=== PATIENT | female | born 1995 | race Caucasian/White ===

== ENCOUNTER 2017-07-25 09:36 | Emergency (ER) | payer BC ==
--- NOTE | 2017-07-25 10:36 | EDM.PDOC ---
ED HPI GENERAL MEDICAL PROBLEM - General Chief Complaint: Gastrointestinal Problem Stated Complaint: 10 WEEKS PREG AND CRAMPING Time Seen by Provider: 07/25/17 10:14 Source of Information: Reports: Patient History Limitations: Reports: No Limitations - History of Present Illness INITIAL COMMENTS - FREE TEXT/NARRATIVE: The patient states that she is approximately 10 weeks gestation. Ab1. LMP 05/10/2017. LYNDON 02/18/18. Her cbx operator is Dr. Marin. She has undergone 2 ultrasounds thus far, demonstrating a SLIUP. She states that Wednesday night, 07/23/2017, she developed lower abdominal cramps. At that time, she did not have any nausea, vomiting, constipation, or diarrhea. No vaginal bleeding. On 07/24/2017, she felt fine, however, last night she developed significantly increased lower abdominal pain and cramps, along with nausea, vomiting, and watery diarrhea. Still no vaginal bleeding. No fever. She took Tylenol around 02:00 and again around 07:00, without relief. No prior similar symptoms. No recent spoiled food. No recent antibiotics. No recent travel. No similarly ill contacts. She states that she went to the hospital in [facility] this morning. A copy of her medical record has been faxed to us. It indicates that a CBC, CMP, and urinalysis were checked, all of which were completely normal. She states that she was discharged home with 2 pills of Zofran, however, she decided to come to this ED, because that hospital does not have obstetric care. The patient's PCP is Dr. Tien Thomas, at [facility], [place]. 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: , 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 Psychiatric History: Reports: Anxiety, Depression - Past Surgical History HEENT Surgical History: Reports: Myringotomy w Tube(s) Social & Family History - Family History Family Medical History: Noncontributory - Tobacco Use Smoking Status *Q: Never Smoker Second Hand Smoke Exposure: No - Caffeine Use Caffeine Use: Reports: Tea - Alcohol Use Alcohol Use History: Yes Alcohol Use Frequency: Socially (not when ) - Recreational Drug Use Recreational Drug Use: No - Living Situation & Occupation Living situation: Reports: Single, Alone Occupation: Employed ([employer]) ED ROS GENERAL - Review of Systems Review Of Systems: ROS reveals no pertinent complaints other than HPI. ED EXAM, GI/ABD - Physical Exam Exam: See Below Exam Limited By: No Limitations General Appearance: Alert, WD/WN, No Apparent Distress Eyes: Bilateral: Normal Appearance, EOMI Ears: Normal External Exam, Hearing Grossly Normal Nose: Normal Inspection, No Blood Throat/Mouth: Normal Inspection, Normal Lips, Normal Voice, No Airway Compromise Head: Atraumatic, Normocephalic Neck: Normal Inspection, Full Range of Motion Respiratory/Chest: No Respiratory Distress, Lungs Clear, Normal Breath Sounds, No Accessory Muscle Use Cardiovascular: Normal Peripheral Pulses, Regular Rate, Rhythm, No Gallop, No JVD, No Murmur, No Rub GI/Abdominal Exam: Normal Bowel Sounds, Soft, Non-Tender, No Organomegaly, No Distention, No Abnormal Bruit, No Mass (Female) Exam: Deferred Rectal (Female) Exam: Deferred Back Exam: Normal Inspection, Full Range of Motion. No: CVA Tenderness (L), CVA Tenderness (R) Extremities: Normal Inspection, Normal Range of Motion, No Pedal Edema, Normal Capillary Refill Neurological: Alert, Oriented, Normal Cognition, No Motor/Sensory Deficits Psychiatric: Normal Affect Skin Exam: Warm, Dry, Intact, Normal Color, No Rash Course - Vital Signs Last Recorded V/S: Last Vital Signs Temp 36.9 C 07/25/17 09:45 Pulse 100 07/25/17 09:45 Resp 18 07/25/17 09:45 BP 113/70 07/25/17 09:45 Pulse Ox 100 07/25/17 09:45 - Orders/Labs/Meds Orders: Active Orders 24 hr Category Date Time Status Heart Tones [RC] ASDIRECTED Care 07/25/17 10:30 Active Labs: Laboratory Tests 07/25/17 Range/Units 10:00 Urine Color Yellow (Yellow) Urine Appearance Clear (Clear) Urine pH 6.0 (5.0-8.0) Ur Specific [place] > or = 1.030 (1.005-1.030) Urine Protein Negative (Negative) Urine Glucose (UA) Negative (Negative) Urine Ketones Trace H (Negative) Urine Occult Blood Negative (Negative) Urine Nitrite Negative (Negative) Urine Bilirubin Negative (Negative) Urine Urobilinogen 0.2 (0.2-1.0) Ur Leukocyte Esterase Negative (Negative) Urine RBC 0-5 (0-5) /hpf Urine WBC 0-5 (0-5) /hpf Ur Epithelial Cells 0-5 (0-5) /hpf Urine Bacteria Few (FEW) /hpf Urine Mucus Few (FEW) /hpf - Re-Assessments/Exams Free Text/Narrative Re-Assessment/Exam: 07/25/17 10:25 heart tones are 185. Unfortunately, Imodium (loperamide) is category C. Lomotil category is not available. 07/25/17 12:09 The patient was not able to provide a stool sample. We will send her home with a hat and stool container, along with recommendations for what stool studies would be appropriate, as the patient's PCP is in [place]. She would take the stool sample there. I will e-prescribe Zofran. Departure - Departure Time of Disposition: 12:11 Disposition: Home, Self-Care 01 Condition: Good Clinical Impression: Viral gastroenteritis - Discharge Information Prescriptions: Ondansetron [Zofran ODT] 1 tab PO Q8H PRN #10 tab.dis PRN Reason: Nausea/Vomiting Referrals: Lexi Marin MD [Physician] - Tien Thomas MD [Primary Care Provider] - Forms: ED Department Discharge Additional Instructions: You were seen in the emergency room for lower abdominal cramps associated with nausea, vomiting, and watery diarrhea, while . Workup in the ER included a urinalysis and heart tones. You were not able to provide a stool sample. Your urinalysis was normal. Your heart tones were 185. This is normal for a 10 week fetus. You are MOST LIKELY suffering from viral gastroenteritis. Unfortunately, there are no medicines to directly treat viral gastroenteritis - it will have to run its course. A prescription for the anti-nausea medicine Zofran has been sent to [facility], [address] [place] [address]. Dissolve 1 tablet on your tongue up to every 8 hours as needed for nausea/vomiting. Unfortunate, there are no anti-diarrhea medicines that are safe with . Stay adequately hydrated. Gatorade or Powerade are best. You have been sent home with a hat and stool container. If you are able to provide a stool sample, notify Dr. Thomas's office so that they can submit stool studies, such as stool culture, stool WBC, rotavirus, and norovirus. If any other problems, please do not hesitate to return to the ER. - My Orders Last 24 Hours: My Active Orders 07/25/17 10:30 Heart Tones [RC] ASDIRECTED - Assessment/Plan Last 24 Hours: My Active Orders 07/25/17 10:30 Heart Tones [RC] ASDIRECTED
== END 2017-07-25 12:25 | disposition home or self-care (01) ==
LOC: JD.ED 09:36
DX: O98.811 Other maternal infectious and parasitic diseases complicating pregnancy, first trimester (principal); A08.4 Viral intestinal infection, unspecified; O99.341 Other mental disorders complicating pregnancy, first trimester; F32.9 Major depressive disorder, single episode, unspecified; Z79.899 Other long term (current) drug therapy; Z88.8 Allergy status to other drugs, medicaments and biological substances; Z3A.10 10 weeks gestation of pregnancy
CPT/HCPCS: 81001; 99283; 99284

== ENCOUNTER 2018-01-27 14:53 | Inpatient (IN) | payer BC ==
[2018-01-27] MEDS ORDERED: Misoprostol 25 MCG (1/4 of 100 MCG) Tab ONE ×2 (16:56→21:39)
[2018-01-27] MEDS ORDERED: Sodium Chloride 0.9% 10 ML Syringe FLUSH PRN (17:08)
[2018-01-27] MEDS ORDERED: Misoprostol 100 MCG Tab VAG PRN (17:08)
[2018-01-27] MEDS ORDERED: Nalbuphine 20 MG/ML 1 ML Syringe IVPUSH PRN (17:12)
[2018-01-27] MEDS ORDERED: Ondansetron 4 MG/2 ML SDV IVPUSH PRN (17:12)
--- NOTE | 2018-01-27 17:14 | PCM.LDHP ---
L&D History of Present Illness - General Date of Service: 01/27/18 Admit Problem/Dx: Patient Status Order with Admit Dx/Problem 01/27/18 15:03 Patient Status [ADT] Routine 01/27/18 17:09 Patient Status [ADT] Routine Admission Diagnosis/Problem Admission Diagnosis/Problem Elevated blood pressure affecting in third trimester, antepartum Source of Information: Patient History Limitations: Reports: No Limitations - History of Present Illness Introduction:: Patient is a 23 y/o at 37 3/7 wks who presents to L&D for complaints of feeling slightly unwell and findings of elevated BP at home. States this started occurring a few days ago. Due to this her friend who is an EMT checked her blood pressure and was reportedly systolic of 150's. This otherwise uncomplicated. 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: , Therapeutic : 2 Para: 0 LMP (Approximate): Musculoskeletal History: Reports: Other (See Below) Other Musculoskeletal History: tremors in hands Neurological History: Reports: Migraines Psychiatric History: Reports: Anxiety, Depression Dermatologic History: Reports: Cellulitis - Infectious Disease History Infectious Disease History: Reports: Chicken Pox - Past Surgical History HEENT Surgical History: Reports: Myringotomy w Tube(s), Oral Surgery Social & Family History - Family History Family Medical History: Noncontributory - Tobacco Use Smoking Status *Q: Never Smoker - Caffeine Use Caffeine Use: Reports: Tea - Alcohol Use Alcohol Use History: No - Recreational Drug Use Recreational Drug Use: No - Living Situation & Occupation Living situation: Reports: Single, Alone Occupation: Employed ([employer]) H&P Review of Systems - Review of Systems: Review Of Systems: See Below General: Reports: Malaise Pulmonary: Reports: No Symptoms Cardiovascular: Reports: No Symptoms Gastrointestinal: Reports: No Symptoms Genitourinary: Reports: No Symptoms Musculoskeletal: Reports: No Symptoms Psychiatric: Reports: No Symptoms Neurological: Reports: No Symptoms L&D Exam - Exam Exam: See Below - Vital Signs Vital Signs: Last Vital Signs Temp 36.7 C 01/27/18 15:03 Pulse 99 01/27/18 15:03 Resp 17 01/27/18 15:03 BP 155/90 H 01/27/18 15:03 Pulse Ox Weight: 87.906 kg - OB Specific Contraction Intensity: Irritability Movement: Active Heart Tones: Present Heart Tones per Min: 135 Heart Rate (FHR) Variability: Moderate (6-25 bmp) Presentation: Vertex - Tobias Score Tobias Score Cervix Position: Posterior Tobias Score Consistency: Soft Tobias Score Effacement: 51-70% Tobias Score Dilation: 1-2 cm Tobias Score Infant's Station: -1 ,0 Tobias Score Total: 7 - Exam General: Alert, Oriented, Cooperative Lungs: Clear to Auscultation, Normal Respiratory Effort Cardiovascular: Regular Rate, Regular Rhythm GI/Abdominal Exam: Soft, Non-Tender Genitourinary: Normal external exam Extremities: Normal Inspection Skin: Warm, Dry, Intact - Patient Data Lab Results Last 24 hrs: Laboratory Results - last 24 hr 01/27/18 01/27/18 01/27/18 Range/Units 15:10 15:20 15:20 WBC 10.84 H (3.98-10.04) K/mm3 RBC 4.12 (3.98-5.22) M/mm3 Hgb 10.5 L (11.2-15.7) gm/L Hct 32.3 L (34.1-44.9) % MCV 78.4 L (79.4-94.8) fl MCH 25.5 L (25.6-32.2) pg MCHC 32.5 (32.2-35.5) g/dl RDW Std Deviation 40.7 (36.4-46.3) fL Plt Count 352 (182-369) K/mm3 MPV 10.3 (9.4-12.3) fl Neut % (Auto) 78.3 H (34.0-71.1) % Lymph % (Auto) 14.9 L (19.3-51.7) % [place] % (Auto) 5.4 (4.7-12.5) % Eos % (Auto) 0.6 L (0.7-5.8) Baso % (Auto) 0.1 (0.1-1.2) % Neut # (Auto) 8.48 H (1.56-6.13) K/mm3 Lymph # (Auto) 1.62 (1.18-3.74) K/mm3 [place] # (Auto) 0.59 H (0.24-0.36) K/mm3 Eos # (Auto) 0.06 (0.04-0.36) K/mm3 Baso # (Auto) 0.01 (0.01-0.08) K/mm3 BUN 12 (7-18) mg/dL Creatinine 0.6 (0.55-1.02) mg/dL Est Cr Clr Drug Dosing 130.10 mL/min Estimated GFR (MDRD) > 60 (>60) mL/min Uric Acid 4.8 (2.6-6.0) mg/dL AST 10 L (15-37) U/L ALT 14 (14-59) U/L Lactate Dehydrogenase 163 (81-234) U/L Urine Color Yellow (Yellow) Urine Appearance Slt cloudy H (Clear) Urine pH 5.5 (5.0-8.0) Ur Specific [place] > or = 1.030 (1.005-1.030) Urine Protein 2+ H (Negative) Urine Glucose (UA) Negative (Negative) Urine Ketones Negative (Negative) Urine Occult Blood Negative (Negative) Urine Nitrite Negative (Negative) Urine Bilirubin Negative (Negative) Urine Urobilinogen 0.2 (0.2-1.0) Ur Leukocyte Esterase Negative (Negative) Urine RBC 0-5 (0-5) /hpf Urine WBC 5-10 H (0-5) /hpf Ur Epithelial Cells 20-30 H (0-5) /hpf Urine Bacteria Moderate H (FEW) /hpf Urine Mucus Not seen (FEW) /hpf Result Diagrams: 01/27/18 15:20 01/27/18 15:20 - Problem List (1) 37 weeks gestation of SNOMED Code(s): 11573013 ICD Code: Z3A.37 - 37 WEEKS GESTATION OF Status: Acute Current Visit: Yes (2) Preeclampsia SNOMED Code(s): 676621155 ICD Code: O14.90 - UNSPECIFIED PRE-ECLAMPSIA, UNSPECIFIED TRIMESTER Status : Acute Current Visit: Yes Qualifiers: Trimester: third trimester Qualified Code(s): O14.93 - Unspecified pre- eclampsia, third trimester Problem List Initiated/Reviewed/Updated: Yes Orders Last 24hrs: Active Orders 24 hr Category Date Time Status Patient Status [ADT] Routine ADT 01/27/18 15:03 Active Patient Status [ADT] Routine ADT 01/27/18 17:09 Ordered Communication Order [RC] ASDIRECTED Care 01/27/18 17:09 Ordered Communication Order [RC] ASDIRECTED Care 01/27/18 17:09 Ordered Communication Order [RC] ASDIRECTED Care 01/27/18 17:12 Ordered Monitoring [RC] INTERMITTENT Care 01/27/18 17:09 Ordered Non Stress Test [RC] PER UNIT ROUTINE Care 01/27/18 15:03 Active Non Stress Test [RC] PER UNIT ROUTINE Care 01/27/18 17:09 Ordered Notify Provider [RC] ASDIRECTED Care 01/27/18 17:09 Ordered Notify Provider [RC] PRN Care 01/27/18 17:12 Ordered Peripheral IV Care [RC] . DIRECTED Care 01/27/18 17:10 Ordered Vaginal Exam [RC] ASDIRECTED Care 01/27/18 17:09 Ordered Vital Signs [RC] ASDIRECTED Care 01/27/18 17:09 Ordered Vital Signs [RC] PER UNIT ROUTINE Care 01/27/18 15:03 Active Regular Diet [DIET] Diet 01/27/18 Dinner Ordered RAPID PLASMA REAGIN,RPR [CHEM] Routine Lab 01/27/18 17:12 Ordered TYPE AND SCREEN [BBK] Routine Lab 01/27/18 17:12 Ordered Lactated Ringers [Ringers, Lactated] 1,000 ml Med 01/27/18 17:15 Ordered IV ASDIRECTED Nalbuphine [Nubain] Med 01/27/18 17:12 Ordered 10 mg IVPUSH Q2H PRN Ondansetron [Zofran] Med 01/27/18 17:12 Ordered 4 mg IVPUSH Q4H PRN Oxytocin/Lactated Ringers [Pitocin in LR 10 Units/1,000 Med 01/27/18 17:15 Ordered ML] 10 unit in 1,000 ml IV TITRATE Sodium Chloride 0.9% [Saline Flush] Med 01/27/18 17:08 Ordered 10 ml FLUSH ASDIRECTED PRN miSOPROStol [Cytotec] Med 01/27/18 17:08 Ordered 25 mcg VAG Q4H PRN PIH Panel [OM.PC] Stat Oth 01/27/18 15:03 Ordered Peripheral IV Insertion Adult [OM.PC] Routine Oth 01/27/18 17:09 Ordered Resuscitation Status Routine Resus Stat 01/27/18 15:03 Ordered Medication Orders Lactated Ringer's (Ringers, Lactated) 1,000 mls @ 40 mls/hr IV ASDIRECTED LINDSAY Oxytocin/Lactated Ringer's (Pitocin In Lr 10 Units/1,000 Ml) 10 unit in 1,000 mls @ 12 mls/hr IV TITRATE LINDSAY; Protocol Misoprostol (Cytotec) 25 mcg VAG Q4H PRN PRN Reason: cervical ripening Sodium Chloride (Saline Flush) 10 ml FLUSH ASDIRECTED PRN PRN Reason: Keep Vein Open Assessment/Plan Comment:: 23 y/o at 37 3/7 wks with findings of persistently mild range BP's - concerns for preeclampsia without severe features * Labs drawn, close monitoring of BP's * GBS negative, no need for antibiotics * Cytotec placed for induction. Due to patient discomfort not able to place miller bulb * Pain management per patient preference * Anticipate
[2018-01-27] MEDS ORDERED: Oxytocin/Lactated Ringers 10 UNIT/1,000 ML BAG IV SCH (17:15)
[2018-01-27] MEDS ORDERED: ePHEDrine 50 MG/ML SDV IVPUSH PRN (17:29)
[2018-01-27] MEDS ORDERED: fentaNYL 100 MCG/2 ML SDV EPIDUR PRN (17:29)
[2018-01-27] MEDS ORDERED: Bupivacaine/fentaNYL/NS 100 ML Bag EPIDUR SCH (17:30)
[2018-01-27] MEDS ORDERED: Zolpidem 5 MG Tab PO PRN (21:31)
--- NOTE | 2018-01-27 22:06 | PCM.PNLD ---
Labor Progress Note - VS & Meds Vital Signs: Last Vital Signs Temp 36.7 C 01/27/18 15:03 Pulse 99 01/27/18 15:03 Resp 17 01/27/18 15:03 BP 155/90 H 01/27/18 15:03 Pulse Ox Active Medications: Current Medications Ephedrine Sulfate (Ephedrine Sulfate) 5 mg IVPUSH ASDIRECTED PRN PRN Reason: HYPOTENTSION Fentanyl (Sublimaze) 100 mcg EPIDUR Q3H PRN PRN Reason: Pain Fentanyl/Bupivacaine HCl (Fentanyl/Bupivacaine/Ns 2 Mcg-0.125% 100 Ml) 100 ml EPIDUR ASDIRECTED LINDSAY Lactated Ringer's (Ringers, Lactated) 1,000 mls @ 40 mls/hr IV ASDIRECTED LINDSAY Oxytocin/Lactated Ringer's (Pitocin In Lr 10 Units/1,000 Ml) 10 unit in 1,000 mls @ 12 mls/hr IV TITRATE LINDSAY; Protocol Misoprostol (Cytotec) 25 mcg VAG Q4H PRN PRN Reason: cervical ripening Nalbuphine HCl (Nubain) 10 mg IVPUSH Q2H PRN PRN Reason: pain Ondansetron HCl (Zofran) 4 mg IVPUSH Q4H PRN PRN Reason: Nausea/Vomiting Sodium Chloride (Saline Flush) 10 ml FLUSH ASDIRECTED PRN PRN Reason: Keep Vein Open Zolpidem Tartrate (Ambien) 5 mg PO BEDTIME PRN PRN Reason: Insomnia Last Admin: 01/27/18 21:43 Dose: 5 mg Discontinued Medications Misoprostol (Cytotec) Confirm Administered Dose 25 mcg .ROUTE .STK-MED ONE Stop: 01/27/18 16:57 Last Admin: 01/27/18 17:36 Dose: 25 mcg Misoprostol (Cytotec) Confirm Administered Dose 25 mcg .ROUTE .STK-MED ONE Stop: 01/27/18 21:40 Last Admin: 01/27/18 21:44 Dose: 25 mcg - Uterine Contractions Uterine Monitoring Mode: External [place] Contraction Intensity: Irritability - Monitoring Monitor Mode: External Ultrasound Heart Rate (FHR) Baseline: 140 Heart Rate (FHR) Variability: Moderate (6-25 bmp) Accelerations: Present, 15x15 Decelerations: None Strip Review: Category I - Labor Progress (Free Text) Labor Progress: Exam difficult to perform given patient anxiety / intolerance. Will place 2nd cytotec and then likely switch to pitocin at next check. BP's remain mild range
[2018-01-28] MEDS: Lactated Ringers 1,000 ML IV SCH ×2 (01:53→14:25)
--- NOTE | 2018-01-28 06:43 | PCM.PREANE ---
Preanesthetic Assessment - Procedure Proposed Procedure: ESTELA - Anesthesia/Transfusion/Family Hx Anesthesia History: No Prior Anesthesia Family History of Anesthesia Reaction: No Transfusion History: No Prior Transfusion(s) - Review of Systems General: No Symptoms Pulmonary: No Symptoms Cardiovascular: No Symptoms Gastrointestinal: No Symptoms Neurological: No Symptoms Other: Reports: Depression, Anxiety - Physical Assessment NPO Status Date: 01/28/18 NPO Status Time: 04:00 O2 Sat by Pulse Oximetry: 98 Respiratory Rate: 17 Vital Signs: Last Vital Signs Temp 36.7 C 01/27/18 15:03 Pulse 99 01/27/18 15:03 Resp 17 01/27/18 15:03 BP 155/90 H 01/27/18 15:03 Pulse Ox Height: 1.65 m Weight: 87.906 kg ASA Class: 2 Mental Status: Alert & Oriented x3 Airway Class: Mallampati = 1 Dentition: Reports: Normal Dentition Thyro-Mental Finger Breadths: 3 Mouth Opening Finger Breadths: 3 ROM/Head Extension: Full Lungs: Clear to Auscultation, Normal Respiratory Effort Cardiovascular: Regular Rate, Regular Rhythm - Lab Values: Laboratory Last Values WBC 10.84 K/mm3 (3.98-10.04) H 01/27/18 15:20 RBC 4.12 M/mm3 (3.98-5.22) 01/27/18 15:20 Hgb 10.5 gm/L (11.2-15.7) L 01/27/18 15:20 Hct 32.3 % (34.1-44.9) L 01/27/18 15:20 MCV 78.4 fl (79.4-94.8) L 01/27/18 15:20 MCH 25.5 pg (25.6-32.2) L 01/27/18 15:20 MCHC 32.5 g/dl (32.2-35.5) 01/27/18 15:20 RDW Std Deviation 40.7 fL (36.4-46.3) 01/27/18 15:20 Plt Count 352 K/mm3 (182-369) 01/27/18 15:20 MPV 10.3 fl (9.4-12.3) 01/27/18 15:20 Neut % (Auto) 78.3 % (34.0-71.1) H 01/27/18 15:20 Lymph % (Auto) 14.9 % (19.3-51.7) L 01/27/18 15:20 [place] % (Auto) 5.4 % (4.7-12.5) 01/27/18 15:20 Eos % (Auto) 0.6 (0.7-5.8) L 01/27/18 15:20 Baso % (Auto) 0.1 % (0.1-1.2) 01/27/18 15:20 Neut # (Auto) 8.48 K/mm3 (1.56-6.13) H 01/27/18 15:20 Lymph # (Auto) 1.62 K/mm3 (1.18-3.74) 01/27/18 15:20 [place] # (Auto) 0.59 K/mm3 (0.24-0.36) H 01/27/18 15:20 Eos # (Auto) 0.06 K/mm3 (0.04-0.36) 01/27/18 15:20 Baso # (Auto) 0.01 K/mm3 (0.01-0.08) 01/27/18 15:20 BUN 12 mg/dL (7-18) 01/27/18 15:20 Creatinine 0.6 mg/dL (0.55-1.02) 01/27/18 15:20 Est Cr Clr Drug Dosing 130.10 mL/min 01/27/18 15:20 Estimated GFR (MDRD) > 60 mL/min (>60) 01/27/18 15:20 Uric Acid 4.8 mg/dL (2.6-6.0) 01/27/18 15:20 AST 10 U/L (15-37) L 01/27/18 15:20 ALT 14 U/L (14-59) 01/27/18 15:20 Lactate Dehydrogenase 163 U/L (81-234) 01/27/18 15:20 Urine Color Yellow (Yellow) 01/27/18 15:10 Urine Appearance Slt cloudy (Clear) H 01/27/18 15:10 Urine pH 5.5 (5.0-8.0) 01/27/18 15:10 Ur Specific [place] > or = 1.030 (1.005-1.030) 01/27/18 15:10 Urine Protein 2+ (Negative) H 01/27/18 15:10 Urine Glucose (UA) Negative (Negative) 01/27/18 15:10 Urine Ketones Negative (Negative) 01/27/18 15:10 Urine Occult Blood Negative (Negative) 01/27/18 15:10 Urine Nitrite Negative (Negative) 01/27/18 15:10 Urine Bilirubin Negative (Negative) 01/27/18 15:10 Urine Urobilinogen 0.2 (0.2-1.0) 01/27/18 15:10 Ur Leukocyte Esterase Negative (Negative) 01/27/18 15:10 Urine RBC 0-5 /hpf (0-5) 01/27/18 15:10 Urine WBC 5-10 /hpf (0-5) H 01/27/18 15:10 Ur Epithelial Cells 20-30 /hpf (0-5) H 01/27/18 15:10 Urine Bacteria Moderate /hpf (FEW) H 01/27/18 15:10 Urine Mucus Not seen /hpf (FEW) 01/27/18 15:10 Blood Type A POSITIVE 01/27/18 15:20 Gel Antibody Screen Negative 01/27/18 15:20 - Allergies Allergies/Adverse Reactions: Allergies Allergy/AdvReac Type Severity Reaction Status Date / Time paroxetine [From Paxil] Allergy Tremors Verified 07/25/17 09:53 venlafaxine [From Effexor] Allergy Tremors Verified 07/25/17 09:53 - Blood Blood Available: No Product(s) Available: None - Anesthesia Plan Pre-Op Medication Ordered: None - Acknowledgements Anesthesia Type Planned: Epidural Pt an Appropriate Candidate for the Planned Anesthesia: Yes Alternatives and Risks of Anesthesia Discussed w Pt/Guardian: Yes Pt/Guardian Understands and Agrees with Anesthesia Plan: Yes PreAnesthesia Questionnaire HEENT History: Reports: Otitis Media 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: , 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 Other OB/BYN History: 2014 Musculoskeletal History: Reports: Other (See Below) Other Musculoskeletal History: tremors in hands Neurological History: Reports: Migraines Psychiatric History: Reports: Anxiety, Depression Dermatologic History: Reports: Cellulitis - Infectious Disease History Infectious Disease History: Reports: Chicken Pox - Past Surgical History HEENT Surgical History: Reports: Myringotomy w Tube(s), Oral Surgery - SUBSTANCE USE Smoking Status *Q: Never Smoker Recreational Drug Use History: No - HOME MEDS Home Medications: Home Meds Docosahexanoic Acid [ Dha] 200 mg PO DAILY 07/25/17 [History] Ondansetron [Zofran ODT] 1 tab PO Q8H PRN #10 tab.dis 07/25/17 [Rx] Sertraline [Zoloft] 0 mg PO DAILY 07/25/17 [History] - CURRENT (IN HOUSE) MEDS Current Meds: Current Medications Ephedrine Sulfate (Ephedrine Sulfate) 5 mg IVPUSH ASDIRECTED PRN PRN Reason: HYPOTENTSION Fentanyl (Sublimaze) 100 mcg EPIDUR Q3H PRN PRN Reason: Pain Fentanyl/Bupivacaine HCl (Fentanyl/Bupivacaine/Ns 2 Mcg-0.125% 100 Ml) 100 ml EPIDUR ASDIRECTED LINDSAY Lactated Ringer's (Ringers, Lactated) 1,000 mls @ 40 mls/hr IV ASDIRECTED LINDSAY Last Admin: 01/28/18 01:53 Dose: 40 mls/hr Oxytocin/Lactated Ringer's (Pitocin In Lr 10 Units/1,000 Ml) 10 unit in 1,000 mls @ 12 mls/hr IV TITRATE LINDSAY; Protocol Last Titration: 01/28/18 05:45 Dose: 6 munits/min, 36 mls/hr Misoprostol (Cytotec) 25 mcg VAG Q4H PRN PRN Reason: cervical ripening Nalbuphine HCl (Nubain) 10 mg IVPUSH Q2H PRN PRN Reason: pain Ondansetron HCl (Zofran) 4 mg IVPUSH Q4H PRN PRN Reason: Nausea/Vomiting Sodium Chloride (Saline Flush) 10 ml FLUSH ASDIRECTED PRN PRN Reason: Keep Vein Open Zolpidem Tartrate (Ambien) 5 mg PO BEDTIME PRN PRN Reason: Insomnia Last Admin: 01/27/18 21:43 Dose: 5 mg Discontinued Medications Misoprostol (Cytotec) Confirm Administered Dose 25 mcg .ROUTE .STK-MED ONE Stop: 01/27/18 16:57 Last Admin: 01/27/18 17:36 Dose: 25 mcg Misoprostol (Cytotec) Confirm Administered Dose 25 mcg .ROUTE .STK-MED ONE Stop: 01/27/18 21:40 Last Admin: 01/27/18 21:44 Dose: 25 mcg
--- NOTE | 2018-01-28 07:03 | PCM.PNLD ---
Labor Progress Note - VS & Meds Vital Signs: Last Vital Signs Temp 36.7 C 01/27/18 15:03 Pulse 99 01/27/18 15:03 Resp 17 01/28/18 06:43 BP 155/90 H 01/27/18 15:03 Pulse Ox 98 01/28/18 06:43 Active Medications: Current Medications Ephedrine Sulfate (Ephedrine Sulfate) 5 mg IVPUSH ASDIRECTED PRN PRN Reason: HYPOTENTSION Fentanyl (Sublimaze) 100 mcg EPIDUR Q3H PRN PRN Reason: Pain Fentanyl/Bupivacaine HCl (Fentanyl/Bupivacaine/Ns 2 Mcg-0.125% 100 Ml) 100 ml EPIDUR ASDIRECTED [place] Lactated Ringer's (Ringers, Lactated) 1,000 mls @ 40 mls/hr IV ASDIRECTED [place] Last Admin: 01/28/18 01:53 Dose: 40 mls/hr Oxytocin/Lactated Ringer's (Pitocin In Lr 10 Units/1,000 Ml) 10 unit in 1,000 mls @ 12 mls/hr IV TITRATE LINDSAY; Protocol Last Titration: 01/28/18 05:45 Dose: 6 munits/min, 36 mls/hr Misoprostol (Cytotec) 25 mcg VAG Q4H PRN PRN Reason: cervical ripening Nalbuphine HCl (Nubain) 10 mg IVPUSH Q2H PRN PRN Reason: pain Ondansetron HCl (Zofran) 4 mg IVPUSH Q4H PRN PRN Reason: Nausea/Vomiting Sodium Chloride (Saline Flush) 10 ml FLUSH ASDIRECTED PRN PRN Reason: Keep Vein Open Zolpidem Tartrate (Ambien) 5 mg PO BEDTIME PRN PRN Reason: Insomnia Last Admin: 01/27/18 21:43 Dose: 5 mg Discontinued Medications Misoprostol (Cytotec) Confirm Administered Dose 25 mcg .ROUTE .STK-MED ONE Stop: 01/27/18 16:57 Last Admin: 01/27/18 17:36 Dose: 25 mcg Misoprostol (Cytotec) Confirm Administered Dose 25 mcg .ROUTE .STK-MED ONE Stop: 01/27/18 21:40 Last Admin: 01/27/18 21:44 Dose: 25 mcg - Uterine Contractions Uterine Monitoring Mode: External [place] Contraction Intensity: Irritability - Monitoring Monitor Mode: External Ultrasound Heart Rate (FHR) Baseline: 140 Heart Rate (FHR) Variability: Moderate (6-25 bmp) Accelerations: Present, 15x15 Decelerations: None Strip Review: Category I - Labor Progress (Free Text) Labor Progress: Pitocin started around 0130. Was up to 8 and now back down to 6. Doing well. Currently rates contractions as mild. Will continue to increase medication. BP 's normal to mild range overnight
[2018-01-28] MEDS ORDERED: fentaNYL 100 MCG/2 ML SDV EPIDUR PRN (07:13)
[2018-01-28] MEDS ORDERED: diphenhydrAMINE 50 MG/ML SDV IVPUSH PRN (07:13)
[2018-01-28] MEDS ORDERED: Ondansetron 4 MG/2 ML SDV IVPUSH PRN (07:13)
[2018-01-28] MEDS ORDERED: ePHEDrine 50 MG/ML SDV IVPUSH PRN (07:13)
[2018-01-28] MEDS ORDERED: Bupivacaine/fentaNYL/NS 100 ML Bag EPIDUR SCH (07:15)
[2018-01-28] MEDS ORDERED: Bupivacaine 0.25% 10 ML SDV ONE (14:00)
--- NOTE | 2018-01-28 14:27 | PCM.PNLD ---
Labor Progress Note - VS & Meds Vital Signs: Last Vital Signs Temp 36.7 C 01/27/18 15:03 Pulse 99 01/27/18 15:03 Resp 17 01/28/18 06:43 BP 155/90 H 01/27/18 15:03 Pulse Ox 98 01/28/18 06:43 Active Medications: Current Medications Diphenhydramine HCl (Benadryl) 25 mg IVPUSH Q6H PRN PRN Reason: Pruritis Ephedrine Sulfate (Ephedrine Sulfate) 5 mg IVPUSH ASDIRECTED PRN PRN Reason: Hypotension Fentanyl (Sublimaze) 100 mcg EPIDUR Q3H PRN PRN Reason: Pain Last Admin: 01/28/18 13:48 Dose: 100 mcg Fentanyl/Bupivacaine HCl (Fentanyl/Bupivacaine/Ns 2 Mcg-0.125% 100 Ml) 100 ml EPIDUR ASDIRECTED [place] Last Admin: 01/28/18 13:48 Dose: 100 ml Lactated Ringer's (Ringers, Lactated) 1,000 mls @ 40 mls/hr IV ASDIRECTED L[place]SAY Last Admin: 01/28/18 14:25 Dose: 40 mls/hr Oxytocin/Lactated Ringer's (Pitocin In Lr 10 Units/1,000 Ml) 10 unit in 1,000 mls @ 12 mls/hr IV TITRATE LINDSAY; Protocol Last Titration: 01/28/18 10:25 Dose: 7 munits/min, 42 mls/hr Misoprostol (Cytotec) 25 mcg VAG Q4H PRN PRN Reason: cervical ripening Nalbuphine HCl (Nubain) 10 mg IVPUSH Q2H PRN PRN Reason: pain Ondansetron HCl (Zofran) 4 mg IVPUSH Q4H PRN PRN Reason: Nausea/Vomiting Ondansetron HCl (Zofran) 4 mg IVPUSH ONETIME PRN PRN Reason: Nausea/Vomiting Sodium Chloride (Saline Flush) 10 ml FLUSH ASDIRECTED PRN PRN Reason: Keep Vein Open Zolpidem Tartrate (Ambien) 5 mg PO BEDTIME PRN PRN Reason: Insomnia Last Admin: 01/27/18 21:43 Dose: 5 mg Discontinued Medications Ephedrine Sulfate (Ephedrine Sulfate) 5 mg IVPUSH ASDIRECTED PRN PRN Reason: HYPOTENTSION Fentanyl (Sublimaze) 100 mcg EPIDUR Q3H PRN PRN Reason: Pain Fentanyl/Bupivacaine HCl (Fentanyl/Bupivacaine/Ns 2 Mcg-0.125% 100 Ml) 100 ml EPIDUR ASDIRECTED [facility] Misoprostol (Cytotec) Confirm Administered Dose 25 mcg .ROUTE .STK-MED ONE Stop: 01/27/18 16:57 Last Admin: 01/27/18 17:36 Dose: 25 mcg Misoprostol (Cytotec) Confirm Administered Dose 25 mcg .ROUTE .STK-MED ONE Stop: 01/27/18 21:40 Last Admin: 01/27/18 21:44 Dose: 25 mcg - Uterine Contractions Uterine Monitoring Mode: External [place] Contraction Intensity: Moderate to Strong - Monitoring Monitor Mode: External Ultrasound Heart Rate (FHR) Baseline: 135 Heart Rate (FHR) Variability: Moderate (6-25 bmp) Accelerations: Present, 15x15 Decelerations: None Strip Review: Category I - Vaginal Exam Dilation (cm): 3-4 Effacement (Percent): 80 Station: -1 Cervical Position: Midposition - Labor Progress (Free Text) Labor Progress: Doing well. Just received her epidural. AROM performed with release of clear fluid. Continue present management
--- NOTE | 2018-01-28 19:12 | PCM.SN ---
- Free Text/Narrative Note: Delivery note: Marlene was admitted and induced because of borderline elevated blood pressures at 37+ weeks gestational age. She made relatively rapid progress after membranes were ruptured. She was on Pitocin which is increased to a maximum level of 19 mU/m. At approximately 1830 hrs. she became completely dilated. She delivered a viable, nunn, female infant with Apgars of 8 and 9, a weight of 3260 grams, ( 7 pounds, 3.0 ounces), a length of 20 inches in a right occiput anterior position. There was a nuchal cord which was loose 1 loop and was reduced over the baby's head easily. Baby delivered and was placed on mom's abdomen. Pitocin was administered IV to facilitate increase in uterine tone and decreased likelihood of bleeding. There was a second-degree laceration which was repaired with 3-0 Monocryl using the epidural for anesthesia. Patient tolerated this well. The placenta delivered in a Bella presentation, appeared intact and complete and was discarded per patient desire. Cord had 3 vessels. Estimated blood loss was 100 mL. Patient plans to breast-feed. Condition: Good
[2018-01-28] MEDS ORDERED: Benzocaine/Menthol 20%-0.5% Spray 56 GM Canister TOP PRN (20:23)
[2018-01-28] MEDS ORDERED: Lanolin 100% Cream 7 GM Tube TOP PRN (20:23)
[2018-01-28] MEDS ORDERED: Witch Hazel Medicated Pads 100/Jar TOP PRN (20:23)
[2018-01-28] MEDS ORDERED: Docusate Sodium 100 MG Cap PO PRN (20:23)
[2018-01-28] MEDS ORDERED: Acetaminophen 325 MG Tab PO PRN (20:23)
[2018-01-29] MEDS: Ibuprofen 600 MG Tab PO PRN ×3 (08:15→17:31)
--- NOTE | 2018-01-29 08:30 | PCM.SN ---
- Free Text/Narrative Note: Marlene is a G2 now [id number] YO Female who was admitted and induced because of borderline elevated blood pressures at 37 3/7 weeks gestational age. At approximately 1830 hrs. she became completely dilated. She delivered a viable, nunn, female with Apgars of 8 and 9, a weight of 3260 grams, ( 7 pounds, 3.0 ounces), a length of 20 inches in a right occiput anterior position. There was a nuchal cord which was loose 1 loop and was reduced over the baby's head easily. Baby delivered and was placed on mom's abdomen. Pitocin was administered IV to facilitate increase in uterine tone and decreased likelihood of bleeding. There was a second-degree laceration which was repaired with 3-0 Monocryl using the epidural for anesthesia. Patient tolerated this well. The placenta delivered in a Bella presentation, appeared intact and complete and was discarded per patient desire. Cord had 3 vessels. Estimated blood loss was 100 mL. Patient plans to breast-feed. Condition: Good SUBJECTIVE Patient denies excessive vaginal discharge, fevers/chills, headaches, blurry vision, malaise, LE edema, excessive pain/bleeding/cramping, chest pain, cough, SOB, or dyspnea. Abdominal exam revealed normally kaylin uterus with level of fundus below umbilicus, trace LE edema. Patient appears to be well-developed , well-nourished, of good color and in good health, with no obvious concerns on exam. OBJECTIVE VS 01/29/2018 are BP: 128/73 HR: 88 RR: 14 T: 37.2 O2: 98% on room air. ASSESSMENT 1. Induced vaginal delivery at 37 3/7 wks gestational age 2. Pre-ecclampsia in third trimester 3. Plans to breastfeed PLAN 1. Plan to d/c home tomorrow 2. Support/encourage decision 3. Monitor BP/LE edema
[2018-01-29] MEDS: Lactated Ringers 1,000 ML IV SCH (20:37)
--- NOTE | 2018-01-30 06:23 | PCM.DCSUM1 ---
Discharge Summary - Hospital Course Free Text/Narrative:: Marlene was admitted and induced because of borderline elevated blood pressures at 37+ weeks gestational age. She made relatively rapid progress after membranes were ruptured. She was on Pitocin which is increased to a maximum level of 19 mU/m. At approximately 1830 hrs. she became completely dilated. She delivered a viable, nunn, female infant with Apgars of 8 and 9, a weight of 3260 grams, ( 7 pounds, 3.0 ounces), a length of 20 inches in a right occiput anterior position. There was a nuchal cord which was loose 1 loop and was reduced over the baby's head easily. Baby delivered and was placed on mom's abdomen. Pitocin was administered IV to facilitate increase in uterine tone and decreased likelihood of bleeding. There was a second-degree laceration which was repaired with 3-0 Monocryl using the epidural for anesthesia. Patient tolerated this well. The placenta delivered in a Bella presentation, appeared intact and complete and was discarded per patient desire. Cord had 3 vessels. Estimated blood loss was 100 mL. Patient plans to breast-feed. patient is done very well. She is nursing without problems, has minimal lochia, voiding well and ambulating without concerns. She is desiring discharge home. Diagnosis: Stroke: No - Discharge Data Discharge Date: 01/30/18 Discharge Disposition: Home, Self-Care 01 Condition: Good - Patient Instructions Diet: Regular Diet as Tolerated (nursing diet with increased calories and calcium is recommended) Activity: As Tolerated (no intercourse or tampons until bleeding resolves) Driving: Do Not Drive (2 days then may return to normal driving) Showering/Bathing: May Shower (may take a bath) Notify Provider of: Fever, Increased Pain, Swelling and Redness, Nausea and/or Vomiting - Discharge Plan *PRESCRIPTION DRUG MONITORING PROGRAM REVIEWED*: No *COPY OF PRESCRIPTION DRUG MONITORING REPORT IN PATIENT YOVANY: No Home Medications: Home Meds Docosahexanoic Acid [ Dha] 200 mg PO DAILY 07/25/17 [History] Ondansetron [Zofran ODT] 1 tab PO Q8H PRN #10 tab.dis 07/25/17 [Rx] Sertraline [Zoloft] 0 mg PO DAILY 07/25/17 [History] Acetaminophen [Tylenol] 650 mg PO Q4H PRN tablet 01/30/18 [Rx] Ibuprofen [Motrin] 600 mg PO Q4H PRN tablet 01/30/18 [Rx] Patient Handouts: Home Care Instructions for Mom, Tips for a Good Latch Referrals: Jadyn Smith MD [Physician] - (Return to clinic-Dr. Smith3-6 weeks) - Discharge Summary/Plan Comment DC Time >30 min.: No Discharge Summary/Plan Comment: Discharge instructions: 1. Discharge home 2. Diet, activity and follow-up discussed with patient. Recommend nursing diet with increased calories and calcium. 3. Precautions given concern increased pain, bleeding, temperature, signs/ symptoms of DVT/PE. 4. Medications per home medication was printed, discussed with and given to the patient. 5. Return to clinic-Dr. Smith3-6 weeks.. Diagnosis: Term -delivered Condition: Good - Patient Data Vitals - Most Recent: Last Vital Signs Temp 36.6 C 01/29/18 21:18 Pulse 84 01/30/18 02:30 Resp 16 01/30/18 02:30 BP 122/77 01/30/18 02:30 Pulse Ox 97 01/30/18 02:30 Weight - Most Recent: 87.906 kg I&O - Last 24 hours: Intake & Output 01/29/18 01/29/18 01/30/18 14:59 22:59 06:59 Intake Total 240 420 Balance 240 420 Lab Results - Last 24 hrs: Laboratory Results - last 24 hr 01/29/18 Range/Units 19:40 WBC 14.85 H (3.98-10.04) K/mm3 RBC 3.85 L (3.98-5.22) M/mm3 Hgb 9.6 L (11.2-15.7) gm/L Hct 30.4 L (34.1-44.9) % MCV 79.0 L (79.4-94.8) fl MCH 24.9 L (25.6-32.2) pg MCHC 31.6 L (32.2-35.5) g/dl RDW Std Deviation 41.6 (36.4-46.3) fL Plt Count 329 (182-369) K/mm3 MPV 10.3 (9.4-12.3) fl Med Orders - Current: Current Medications Acetaminophen (Tylenol) 650 mg PO Q4H PRN PRN Reason: mild pain or fever Benzocaine/Menthol (Dermoplast Pain Relief [place]) 0 gm TOP ASDIRECTED PRN PRN Reason: Perineal Comfort Measure Last Admin: 01/28/18 20:35 Dose: 1 can Docusate Sodium (Colace) 100 mg PO BID PRN PRN Reason: Constipation Last Admin: 01/29/18 11:51 Dose: 100 mg Emollient Ointment (Lansinoh Hpa) 0 gm TOP ASDIRECTED PRN PRN Reason: Sore Nipples Last Admin: 01/29/18 10:01 Dose: 1 tube Ibuprofen (Motrin) 600 mg PO Q4H PRN PRN Reason: Mild pain or fever Last Admin: 01/29/18 17:31 Dose: 600 mg Witch Dayanna (Tucks) 1 pad TOP ASDIRECTED PRN PRN Reason: Hemorrhoid pain Last Admin: 01/28/18 20:35 Dose: 1 can Discontinued Medications Diphenhydramine HCl (Benadryl) 25 mg IVPUSH Q6H PRN PRN Reason: Pruritis Ephedrine Sulfate (Ephedrine Sulfate) 5 mg IVPUSH ASDIRECTED PRN PRN Reason: HYPOTENTSION Ephedrine Sulfate (Ephedrine Sulfate) 5 mg IVPUSH ASDIRECTED PRN PRN Reason: Hypotension Fentanyl (Sublimaze) 100 mcg EPIDUR Q3H PRN PRN Reason: Pain Fentanyl (Sublimaze) 100 mcg EPIDUR Q3H PRN PRN Reason: Pain Last Admin: 01/28/18 13:48 Dose: 100 mcg Fentanyl/Bupivacaine HCl (Fentanyl/Bupivacaine/Ns 2 Mcg-0.125% 100 Ml) 100 ml EPIDUR ASDIRECTED [facility] Fentanyl/Bupivacaine HCl (Fentanyl/Bupivacaine/Ns 2 Mcg-0.125% 100 Ml) 100 ml EPIDUR ASDIRECTED [facility] Last Admin: 01/28/18 13:48 Dose: 100 ml Lactated Ringer's (Ringers, Lactated) 1,000 mls @ 40 mls/hr IV ASDIRECTED [place] Last Admin: 01/29/18 20:37 Dose: 40 mls/hr Oxytocin/Lactated Ringer's (Pitocin In Lr 10 Units/1,000 Ml) 10 unit in 1,000 mls @ 12 mls/hr IV TITRATE LINDSAY; Protocol Last Titration: 01/28/18 18:30 Dose: Infused Oxytocin 20 unit/ Lactated (Ringer's) 1,002 mls @ 500 mls/hr IV TITRATE LINDSAY; Protocol Misoprostol (Cytotec) Confirm Administered Dose 25 mcg .ROUTE .Reclog-TASCET ONE Stop: 01/27/18 16:57 Last Admin: 01/27/18 17:36 Dose: 25 mcg Misoprostol (Cytotec) 25 mcg VAG Q4H PRN PRN Reason: cervical ripening Misoprostol (Cytotec) Confirm Administered Dose 25 mcg .ROUTE .[place] ONE Stop: 01/27/18 21:40 Last Admin: 01/27/18 21:44 Dose: 25 mcg Nalbuphine HCl (Nubain) 10 mg IVPUSH Q2H PRN PRN Reason: pain Ondansetron HCl (Zofran) 4 mg IVPUSH Q4H PRN PRN Reason: Nausea/Vomiting Ondansetron HCl (Zofran) 4 mg IVPUSH ONETIME PRN PRN Reason: Nausea/Vomiting Sodium Chloride (Saline Flush) 10 ml FLUSH ASDIRECTED PRN PRN Reason: Keep Vein Open Zolpidem Tartrate (Ambien) 5 mg PO BEDTIME PRN PRN Reason: Insomnia Last Admin: 01/27/18 21:43 Dose: 5 mg
[2018-01-30] MEDS: Ibuprofen 600 MG Tab PO PRN (07:14)
--- NOTE | 2018-01-30 22:22 | PCM48HPAN ---
Post Anesthesia Note - EVALUATION WITHIN 48HRS OF ANESTHETIC Vital Signs in Normal Range: Yes Patient Participated in Evaluation: Yes Respiratory Function Stable: Yes Airway Patent: Yes Cardiovascular Function Stable: Yes Hydration Status Stable: Yes Pain Control Satisfactory: Yes Nausea and Vomiting Control Satisfactory: Yes Mental Status Recovered: Yes - COMMENTS/OBSERVATIONS Free Text/Narrative:: Patient denied any anesthesia complications
== END 2018-01-30 11:55 | disposition home or self-care (01) | DRG 560 ==
LOC: JD.OBCHECK 14:53 → JD.OB 14:55 → JD.OBCHECK 17:08 → JD.OB 17:09 → OBSVTOIN 01-28 18:42 → JD.OB 01-28 18:45
PROVIDERS: ADMIT Obstetrics & Gynecology; ATTEND Obstetrics & Gynecology
PROC: 10907ZC Drainage of Amniotic Fluid, Therapeutic from Products of Conception, Via Natural or Artificial Opening (ICD-10-PCS; principal; 2018-01-28)
PROC: 10E0XZZ Delivery of Products of Conception, External Approach (ICD-10-PCS; principal; 2018-01-28)
PROC: 3E033VJ Introduction of Other Hormone into Peripheral Vein, Percutaneous Approach (ICD-10-PCS; principal; 2018-01-28)
PROC: 3E0P7VZ Introduction of Hormone into Female Reproductive, Via Natural or Artificial Opening (ICD-10-PCS; principal; 2018-01-28)
PROC: 0KQM0ZZ Repair Perineum Muscle, Open Approach (ICD-10-PCS; principal; 2018-01-28)
PROC: 00HU33Z Insertion of Infusion Device into Spinal Canal, Percutaneous Approach (ICD-10-PCS; 2018-01-28)
PROC: 3E0R3BZ Introduction of Anesthetic Agent into Spinal Canal, Percutaneous Approach (ICD-10-PCS; 2018-01-28)
DX: O14.94 Unspecified pre-eclampsia, complicating childbirth (principal); O69.81X0 Labor and delivery complicated by cord around neck, without compression, not applicable or unspecified; O70.1 Second degree perineal laceration during delivery; Z3A.37 37 weeks gestation of pregnancy; Z37.0 Single live birth; Z79.899 Other long term (current) drug therapy; Z88.8 Allergy status to other drugs, medicaments and biological substances; O99.344 Other mental disorders complicating childbirth; F41.9 Anxiety disorder, unspecified; F32.9 Major depressive disorder, single episode, unspecified
CPT/HCPCS: 36415; 51702; 59025; 59300; 59409; 81001; 82565; 83615; 84450; 84460; 84520; 84550; 85025; 85027; 86592; 86850; 86900; 86901; A9270-GY; J2590; J3010; J3490; J7120